=== PATIENT | female | born 1960 | race Caucasian/White ===

== ENCOUNTER 2021-06-05 08:15 | Emergency (ER) | payer OTHER ==
[2021-06-05 08:26] VITALS: BP 147/77
--- NOTE | 2021-06-05 08:43 | ED Physician Documentation ---
PD HPI LOWER EXT INJURY - Stated complaint Stated Complaint: LT KNEE PX - Chief complaint Chief Complaint: Ext Problem - History obtained from History obtained from: Patient - History of Present Illness PD HPI LOW EXT INJURY LOCATION: Left, Knee Type of injury: Twist (She was just standing without carrying any objects and turned slightly to the left with her torso and had an abrupt pain in the medial left knee. This continues with any torsional movement. No locking or giving out.) Where injury occurred: Home Timing - onset: Yesterday Timing - details: Abrupt onset, Still present Worsened by: Moving. No: Palpating Associated symptoms: No: Weakness, Numbness, Swelling Contributing factors: No: Prior ortho surgery Similar symptoms before: Has not had sx before Recently seen: Not recently seen Review of Systems Constitutional: denies: Fever, Chills Nose: denies: Rhinorrhea / runny nose, Congestion Throat: denies: Sore throat Respiratory: denies: Cough Skin: denies: Rash, Lesions PD PAST MEDICAL HISTORY - Past Medical History Cardiovascular: None Respiratory: None Endocrine/Autoimmune: None Musculoskeletal: None - Present Medications Home Medications: Ambulatory Orders Medication Instructions Recorded Confirmed HYDROcod/ACETAM 5/325 [[place] 5/325] 1 ea PO Q6H PRN #14 tablet 06/05/21 - Allergies Allergies/Adverse Reactions: Allergies Allergy/AdvReac Type Severity Reaction Status Date / Time No Known Drug Allergies Allergy Verified 06/05/21 08:26 - Living Situation Living Situation: reports: With spouse/s.o. Living Arrangement: reports: At home PD ED PE NORMAL - Vitals Vital signs reviewed: Yes - General General: Alert and oriented X 3, No acute distress, Well developed/nourished - Derm Derm: Normal color, Warm and dry - Extremities Extremities: No edema, No calf tenderness / cord, Other (The left knee is tender along the medial joint line with shifting tenderness on flexion extension consistent with meniscal. Valgus and cruciate testing are without any pain or laxity. No click or pop with impaction testing but it does hurt on the medial aspect. No effusion.) - Neuro Neuro: Alert and oriented X 3, No motor deficit, No sensory deficit, Normal speech Results - Vitals Vitals: Vital Signs - 24 hr 06/05/21 08:24 Temperature 36.4 C L Heart Rate 80 Respiratory 16 Rate Blood Pressure 147/77 H O2 Saturation 96 Oxygen O2 Source Room air - Rads (name of study) left knee Radiology: Prelim report reviewed (some arthritic changes. No acute findings. ), See rad report PD MEDICAL DECISION MAKING - ED course Complexity details: considered differential (Clinically seems like a medial meniscal contusion or partial small tear. We will treat with a hinged knee brace and decreased activity and NSAIDs.), d/w patient Departure - Departure Disposition: 01 Home, Self Care Clinical Impression: Acute meniscal injury of left knee Qualifiers: Encounter type: initial encounter Qualified Code(s): S83.8X2A - Sprain of other specified parts of left knee, initial encounter Condition: Stable Record reviewed to determine appropriate education?: Yes Instructions: ED Meniscal Injury Knee Poss Follow-Up: Niall Osullivan MD [Provider Admit Priv/Credential] - Prescriptions: HYDROcod/ACETAM 5/325 [[place] 5/325] 1 ea PO Q6H PRN #14 tablet PRN Reason: Pain Comments: Your x-ray appears normal without any signs of fractures or avulsions. Your symptoms would sound likely to be a little shift, bruising, or mild tear of the medial meniscus. Commonly if we just reduce the motion of bending and rotation on the meniscus it will improve with short bit of time such as a week or so. Use the hinged knee brace from 0 to 60 degrees when up and around for the next 1 to 2 weeks. You can have it off when rested and sleeping. I would anticipate improvement in this over the next several days to week or so. Follow-up if it is not improving well with orthopedics or your primary care. I would suggest some anti-inflammatory such as ibuprofen 2 to 3 tablets 2-3 times daily with food for the next week. To that add Tylenol or hydrocodone if needed for worse pain. I transmitted your prescription to [facility] pharmacy in [place]. I am prescribing a short course of narcotic pain medication for you. These are potentially dangerous and addictive medications that should be used carefully. These medications may constipate you. Take an skgr-[id number]-jyibpxm stool softener such as docusate twice daily with plenty of water while taking these medications. If you go 24 hours without a bowel movement, take aier-rvp-odpxrca MiraLAX, per package instructions. Do not drink or drive while taking these medications. If you received narcotic or sedating medications while in the emergency department do not drive for 24 hours. Store this medication in a safe, secure place and out of reach of children. It is a violation of federal law to give or sell this medication to another person or to use in a manner other than prescribed. The ED will not refill narcotic prescriptions, including prescriptions lost or stolen. You can dispose of unwanted medications at the [facility] office or at several pharmacies such as [facility]. Discharge Date/Time: 06/05/21 10:15
[2021-06-05] MEDS ORDERED: ACETAMINOPHEN 325 MG TABLET PO STA (08:58)
--- NOTE | 2021-06-05 09:47 | XRAY Report ---
PROCEDURE: Knee 3 View LT INDICATIONS: knee pain with just rotation yest TECHNIQUE: 3 views of the left knee(s) were acquired. COMPARISON: None. FINDINGS: Bones: No fractures or dislocations. No suspicious bony lesions. There is moderate medial femorot ibial joint space narrowing, with associated degenerative change with subchondral sclerosis and osteo phyte formation. On the sunrise view, there is mild lateral patellofemoral joint space narrowing, wi th associated remodeling changes, including spurs along the margins of the patella. Soft tissues: There is a small joint effusion. No suspicious soft tissue calcifications. IMPRESSION: Small joint effusion. Osteoarthritic degenerative changes are seen, which are most prominent involving the medial femorotib ial compartment. If it would be helpful for clinical management decision making, please consider a dedicated, schedule d knee MRI for further evaluation (assuming that there is no contraindication). Reviewed by: Anirudh Stevenson MD on 06/05/2021 8:46 AM [facility] Approved by: Anirudh Stevenson MD on 06/05/2021 8:46 AM [facility] Station ID: [id number]
== END 2021-06-05 10:15 | disposition home or self-care (01) ==
LOC: ED 08:15
DX: S83.8X2A Sprain of other specified parts of left knee, initial encounter (principal); X50.1XXA Overexertion from prolonged static or awkward postures, initial encounter; Y92.009 Unspecified place in unspecified non-institutional (private) residence as the place of occurrence of the external cause
CPT/HCPCS: 73562; 99282; 99283; A9270